=== PATIENT | male | born 1995 | race African-American/Black ===

== ENCOUNTER 2018-05-25 00:58 | Emergency (ER) | payer SELFPAY ==
[~2018-05-25] VITALS: Ht 180.3 cm; Wt 73.5 kg
[2018-05-25 01:07] VITALS: Ht 180.3 cm; Wt 73.5 kg
[2018-05-25 02:33] VITALS: BP 106/75
== END 2018-05-25 02:33 | disposition home or self-care (01) ==
LOC: ED 00:58
DX: S52.102A Unspecified fracture of upper end of left radius, initial encounter for closed fracture (principal); Z88.5 Allergy status to narcotic agent; W19.XXXA Unspecified fall, initial encounter; Z91.81 History of falling; Y93.23 Activity, snow (alpine) (downhill) skiing, snowboarding, sledding, tobogganing and snow tubing; Y92.89 Other specified places as the place of occurrence of the external cause; Y99.8 Other external cause status
CPT/HCPCS: J1885; Q0092